=== PATIENT | female | born 1970 ===

== ENCOUNTER 2022-06-08 15:18 | Outpatient (RCR) | payer OTHER | END 2022-07-02 | LOC: RESP 15:18 | PROVIDERS: ATTEND Nurse Practitioner Family | DX: J18.8 Other pneumonia, unspecified organism (principal); R09.02 Hypoxemia | CPT/HCPCS: 94626 ×5; G0238 ×5 ==

== ENCOUNTER 2022-07-03 12:22 | Outpatient (RCR) | payer OTHER | END 2022-08-02 | LOC: RESP 12:22 | PROVIDERS: ATTEND Nurse Practitioner Family | DX: J18.9 Pneumonia, unspecified organism (principal); R09.02 Hypoxemia | CPT/HCPCS: 94626 ×8; G0238 ×8 ==

== ENCOUNTER 2022-08-03 08:59 | Outpatient (RCR) | payer OTHER | END 2022-09-01 | LOC: RESP 08:59 | PROVIDERS: ATTEND Nurse Practitioner Family | DX: J18.9 Pneumonia, unspecified organism (principal); R09.02 Hypoxemia | CPT/HCPCS: 94626 ×6; G0238 ×6 ==